=== PATIENT | female | born 1995 | race African-American/Black ===

== ENCOUNTER 2023-07-02 19:11 | Emergency (ER) | payer OTHER, SELFPAY ==
[2023-07-02 19:16] VITALS: BP 123/79
--- NOTE | 2023-07-02 19:51 | ED.SKININJ ---
HPI-Injury
General
Chief Complaint: Skin Surface Trauma
Source: patient
Exam Limitations: none
Time Seen by Provider: 07/02/23 19:31
Nursing documentation reviewed up to this point in time: agreed with
Travel History
Have you had any contact with someone who has COVID-19?: No
Do you have any symptoms of coronavirus? Fever > 100 degrees, chills, cough, shortness of breath, sore throat, loss of taste or smell, muscle aches, or headache?: No
History of Present Illness-Injury
Is this injury a work related problem?: No
Is pt an associate of [facility]?: No
Initial Injury comments:
Accidentally cut finger on hedge clipper. Has lac to left palmar index finger. Injury occurred just [employer]
Past History
Past History
ED Past Medical History: None; Negative Asthma, HTN, Hypercholesterolemia or NIDDM
ED Past Surgical History: Orthopedic; Negative Cardiac
Social History
Tobacco: Non-smoker
Alcohol: Occasional
Drug: None
Personal: Single
Living: with family
Employment: Employed
Family History
Family History: Adopted
Review of Systems
Review of Systems
Allergies reviewed?: Yes
All Other Systems: ROS reviewed and negative except as documented in HPI and ROS
Constitutional: Reports no symptoms
Musculoskeletal: Reports no symptoms
Skin: Reports other (laceration to left palmar index finger)
Neurological: Reports no symptoms
Psychiatric: Reports no symptoms
Skin Exam
Laceration
Left Palmar Second Finger:
Length in cm: 1.5
Orientation: stellate
Type of Laceration: simple
Any active bleeding?: no active bleeding
Distal skin color and temperature: normal-warm & good color
Normal distal neurovascular exam: Yes
Range of motion: full
Phy Exam
General Physical Exam
General Presentation: well appearing and no apparent distress
General age: appears stated age
General Skin: warm and dry
General Habitus: normal
General Mental: alert
Musculoskeletal Exam
Musculoskeletal Exam: full ROM and neuro vasc intact
Skin Exam
Skin Exam: normal color, warm/dry and no rash
Psychiatric Exam
Psychiatric Exam: normal mood/affect
Course
Orders/Labs/Results
Orders:
Orders
07/02/23 19:49
Tetanus/Diphth/Acelpertussis [Adacel] 0.5 ml IM .ONCE ONE
Vital Signs
Initial and Last Documented VS:
Initial Vital Signs
Temp Pulse Resp BP Pulse Ox
98.5 F 88 16 123/79 100
07/02/23 19:16 07/02/23 19:16 07/02/23 19:16 07/02/23 19:16 07/02/23 19:16
Last Documented Vital Signs
Temp Pulse Resp BP Pulse Ox
98.5 F 88 16 123/79 100
07/02/23 19:16 07/02/23 19:16 07/02/23 19:16 07/02/23 19:16 07/02/23 19:16
Procedures
Laceration Closure
Left Palmar Second Finger:
Status of Wound: clean
Description of Wound Edges: ragged
Preparation: cleaned with saline
Revision/Debridement: routine- no revision
Wound exploration: explored to base- no FB
Type of Closure: Dermabond-skin glue
*Critical Care Note
Total Time (30-74mins, 75-104mins- exclusive of procedures): Not Applicable
ED Attending Note
-
Portions of this chart may have been created with voice recognition software.� Occasional wrong word or��sound alike� substitutions may have occurred due to the inherent limitations of voice recognition software.
Discharge Plan
Departure
Patient Disposition: Home (Routine Discharge)
Date of Disposition: 07/02/23
Time of Disposition: 19:50
Patient with high blood pressure during this ER visit?: No
Condition: Good
Covid-19: Not Applicable
Discharge Problem:
Finger laceration
Instructions: Laceration Repair With Glue (DC)
Prescriptions:
No Action
prenat.vits,cielo,[id number] Tablet
1 tab PO DAILY
acetaminophen 325 mg Tablet
650 mg PO Q4HPRN PRN (Reason: mild pain) Qty: 30 0RF
ibuprofen 600 mg Tablet
600 mg PO Q6HPRN PRN (Reason: cramps) Qty: 30 0RF
Activity Restrictions/Additional Instructions:
Keep finger dry for 24 hours. Do not removed tape strips.
Interventions
Interventions:
*Risk Screen - Suicide Last Done: 07/02/23 19:19
*General Assessment Last Done: 07/02/23 19:19
*Neglect/Abuse Screening Last Done: 07/02/23 19:19
Discharge Date and Time
Print Language: KAZAKH
[2023-07-02 20:03] VITALS: BMI 51.3
[2023-07-02] MEDS: ADACEL 0.5 ML IM (20:08)
== END 2023-07-02 20:20 | disposition home or self-care (01) ==
LOC: EMR 19:11
PROVIDERS: EMERGENCY PHYSICIAN Emergency Medicine; FAMILY PHYSICIAN Family Medicine
DX: S61.211A Laceration without foreign body of left index finger without damage to nail, initial encounter (principal); W29.3XXA Contact with powered garden and outdoor hand tools and machinery, initial encounter; Z23 Encounter for immunization
CPT/HCPCS: 99282; 12001; 90471; 90715